=== PATIENT | female | born 1990 | race Two or more races ===

== ENCOUNTER 2025-05-01 05:30 | Emergency (ER) | payer OTHER ==
[~2025-05-01] VITALS: Ht 154.9 cm; Wt 65.3 kg
[2025-05-01] MEDS ORDERED: IRON18 M1 PO (05:35)
[2025-05-01] MEDS ORDERED: PROMETHAZINE HCL 50 MG/ML AMPUL IM STA (05:50)
[2025-05-01] MEDS ORDERED: KETOROLAC TROMETHAMINE 60 MG VIAL IM STA (05:50)
[2025-05-01] MEDS ORDERED: FAMOtidine 10 MG/ML (4ML VIAL) IV PUSH STA (05:51)
[2025-05-01 06:45] LABS: BASO % 0.2 % (0.1-1.2); EOS # 0.00 (0.04-0.54); EOS % 0.0 % (0.7-7.0); LYMPH # 1.72 (1.18-3.74); LYMPH % 8.2 % (19.3-53.1); MEAN PLATELET VOLUME 10.60 fl (9.4-12.4); MONO # 0.71 (0.24-0.82); MONO % 3.4 % (4.7-12.5); NEUT # 18.42 (1.56-6.13); NEUT % 87.7 % (34.0-71.1); RED CELL DISTRIBUTION WIDTH 15.7 % (11.6-14.4)
[2025-05-01 07:07] LABS: BUN CREA RATIO 18.0 (7.0-25.0); CREATININE SERUM 0.82 mg/dL (0.55-1.02); GFR 79.8; GLUCOSE FASTING 180.0 mg/dL (65-100); OSMOLALITY SERUM 279.0 MOSM/KG (275-295)
[2025-05-01] MEDS ORDERED: 0.9 % SODIUM CHLORIDE 1,000 ML IV STA (07:14)
[2025-05-01 09:40] LABS: BASO % 0.2 % (0.1-1.2); EOS # 0.01 (0.04-0.54); EOS % 0.1 % (0.7-7.0); LYMPH # 2.35 (1.18-3.74); LYMPH % 14.4 % (19.3-53.1); MEAN PLATELET VOLUME 10.90 fl (9.4-12.4); MONO # 0.66 (0.24-0.82); MONO % 4.1 % (4.7-12.5); NEUT # 13.19 (1.56-6.13); NEUT % 80.9 % (34.0-71.1); RED CELL DISTRIBUTION WIDTH 15.8 % (11.6-14.4)
== END 2025-05-01 12:13 | disposition home or self-care (01) ==
LOC: ER 05:30
PROVIDERS: Emergency Medicine
DX: N94.6 Dysmenorrhea, unspecified (principal)

== ENCOUNTER 2025-06-04 15:55 | Emergency (ER) | payer OTHER ==
[~2025-06-04] VITALS: Ht 154.9 cm; Wt 67.1 kg
[~2025-06-04 15:55] MED LIST: IRON18 M1 PO
[2025-06-04] MEDS ORDERED: ONDANSETRON HCL 2 MG/ML VIAL ONE (17:14)
[2025-06-04] MEDS ORDERED: 0.9 % SODIUM CHLORIDE 1,000 ML IV ONE (17:15)
[2025-06-04] MEDS ORDERED: ONDANSETRON HCL 2 MG/ML VIAL IV ONE (17:15)
[2025-06-04 17:20] LABS: BASO % 0.3 % (0.1-1.2); EOS # 0.03 (0.04-0.54); EOS % 0.2 % (0.7-7.0); LYMPH # 1.82 (1.18-3.74); LYMPH % 11.9 % (19.3-53.1); MEAN PLATELET VOLUME 10.90 fl (9.4-12.4); MONO # 0.53 (0.24-0.82); MONO % 3.5 % (4.7-12.5); NEUT # 12.90 (1.56-6.13); NEUT % 83.9 % (34.0-71.1); RED CELL DISTRIBUTION WIDTH 16.0 % (11.6-14.4)
[2025-06-04] MEDS ORDERED: KETOROLAC TROMETHAMINE 30 MG VIAL IV ONE (17:30)
[2025-06-04 17:38] LABS: INR 1.03
[2025-06-04 17:48] LABS: URINE APPEARANCE Turbid; URINE BILIRRUBIN Small (NEGATIVE); URINE BLOOD Large; URINE COLOR Red; URINE GLUCOSE Negative (NEGATIVE); URINE LEUKOCYTE Moderate; URINE NITRATE Positive; URINE UROBILINOGEN 0.2 E.U./dl
[2025-06-04 17:49] LABS: URINE BACTERIA 326.4 uL (0.0-1933); URINE EPITHELIAL CELLS 12.4 uL (0.0-38.8); URINE WBC 115.5 uL (0.0-23.2)
[2025-06-04 17:59] LABS: URINE KETONE 40 (NEGATIVE); URINE PROTEIN 100 (NEGATIVE)
[2025-06-04 18:00] LABS: URINE CAST 0.60 uL (0.0-1.40); URINE RBC > 10558.9 uL (0.0-20.8)
[2025-06-04 18:22] LABS: ALT/SGPT 34 U/L (12-78); AST/SGOT 14 U/L (15-37); BILIRUBIN TOTAL 0.57 mg/dL (0.3-1.2); BUN CREA RATIO 15 (7.0-25.0); CREATININE SERUM 0.66 mg/dL (0.55-1.02); GFR 102.52; GLOBULINA 3.8 G/DL (2.4-3.5); GLUCOSE FASTING 120 mg/dL (65-100); OSMOLALITY SERUM 285 MOSM/KG (275-295)
[2025-06-04 18:29] LABS: HCG QUANTITATIVE < 1 mUI/mL (1-3)
[2025-06-04] MEDS ORDERED: CEFTRIAXONE SODIUM 1,000 MG VIAL IV ONE (19:00)
[2025-06-04] MEDS ORDERED: CEFTRIAXONE SODIUM 1,000 MG VIAL ONE (19:27)
[2025-06-04] MEDS ORDERED: ZOFRAN8 MG PO (22:45)
[2025-06-04] MEDS ORDERED: NORFLEX100MG PO (22:45)
[2025-06-04] MEDS ORDERED: PEPCID AC20 MG PO (22:45)
== END 2025-06-04 22:49 | disposition home or self-care (01) ==
LOC: ER 16:36
PROVIDERS: General Practice
DX: N80.9 Endometriosis, unspecified (principal); R11.10 Vomiting, unspecified
CPT/HCPCS: 36415; 71045; 74177; 93005; Q9965